=== PATIENT | female | born 1960 | race Two or more races ===

== ENCOUNTER 2024-12-27 09:38 | Emergency (ER) | payer OTHER ==
[~2024-12-27] VITALS: Ht 167.6 cm; Wt 89.8 kg
[2024-12-27] MEDS ORDERED: CLOPIDOGREL BIS75 MG PO (10:24)
[2024-12-27] MEDS ORDERED: AMLODIPINE BESYL5 MG PO (10:24)
[2024-12-27] MEDS ORDERED: SYNTHROID50 MCG PO (10:24)
[2024-12-27] MEDS ORDERED: IRBESARTAN300 MG PO (10:24)
[2024-12-27] MEDS ORDERED: JARDIANCE10 MG PO (10:24)
[2024-12-27] MEDS ORDERED: PANTOPRAZOLE SO40 MG PO (10:24)
[2024-12-27] MEDS ORDERED: HYDROCHLOROTHIA25 MG PO (10:25)
[2024-12-27] MEDS ORDERED: TERAZOSIN HCL2 M1 PO (10:25)
[2024-12-27] MEDS ORDERED: LIPITOR40 M1 (10:25)
[2024-12-27] MEDS ORDERED: DEXAMETHASONE SODIUM PHOSPHATE 4 MG/ML VIAL IM STA (10:28)
[2024-12-27] MEDS ORDERED: KETOROLAC TROMETHAMINE 30 MG VIAL IM STA (10:28)
[2024-12-27] MEDS ORDERED: KETOROLAC TROMETHAMINE 30 MG VIAL ONE (10:49)
[2024-12-27] MEDS ORDERED: DEXAMETHASONE SODIUM PHOSPHATE 4 MG/ML VIAL ONE (10:50)
== END 2024-12-27 14:14 | disposition home or self-care (01) ==
LOC: ER 09:38
DX: M79.644 Pain in right finger(s) (principal); M79.641 Pain in right hand; I10 Essential (primary) hypertension; E11.9 Type 2 diabetes mellitus without complications; Z88.5 Allergy status to narcotic agent; Z91.013 Allergy to seafood; Z91.041 Radiographic dye allergy status
CPT/HCPCS: 73130; 96372; 99283; J1100; J1885